=== PATIENT | male | born 1960 | race Two or more races ===

== ENCOUNTER 2017-09-28 19:37 | Emergency (ER) | payer OTHER ==
[~2017-09-28] VITALS: Ht 167.6 cm; Wt 79.4 kg
--- NOTE | 2017-09-28 19:45 | NUR ---
BB RA78 FROM HOME. RT SCAPULA PAIN RADATING TO RT CHEST WHILE USING SCREWDRIVER 1 HR SENIOR FOREMAN, PT STATES TOOK ASA 162mg SENIOR FOREMAN; PAIN WAS RELEIVED BEFORE EMS ARRIVAL. PT ALSO STATES HX STENT PLACED. PT AOX3 RR EVEN AND UNLABORED. NO SOB NOTED. NAD NOT. NO NVD AT THIS TIME. PT NOT DIAPHORETIC. PT GOWNED AND PLACED ON MONITOR. PER RA PLACED IV ON LEFT AC 18G INTACT AND PATENT. NO S/S INFECTION OR INFILTRATION, GOOD BLOOD RETURN.
[2017-09-28] MEDS ORDERED: ASPI-1169 PO (19:49)
--- NOTE | 2017-09-28 19:55 | NUR ---
DR. CABRALES AT BEDSIDE FOR EVAL.
[2017-09-28 20:08] LABS: BASOPHILS # (AUTO) 0.1 /CMM (0.0-0.2); BASOPHILS % (AUTO) 1.8 % (0.0-2.0); EOSINOPHILS % (AUTO) 2.1 % (0.0-6.0); HEMATOCRIT 45 % (39-51); HEMOGLOBIN 15.8 g/dL (13.5-17.5); LYMPHOCYTES # (AUTO) 2.4 /CMM (0.8-4.8); LYMPHOCYTES % (AUTO) 39.3 % (20.0-44.0); MEAN CORPUSCULAR HGB CONC 35 g/dl (31.0-36.0); MEAN CORPUSCULAR VOLUME 89 fL (80-96); MONOCYTES # (AUTO) 0.4 /CMM (0.1-1.30); MONOCYTES % (AUTO) 6.5 % (2.0-12.0); NEUTROPHILS # (AUTO) 3.2 /CMM (1.8-8.9); NEUTROPHILS % (AUTO) 50.3 % (43.0-81.0); PLATELET COUNT (AUTO) 230 /CMM (150-450); RED BLOOD CELL COUNT(AUTO) 5.09 MIL/uL (4.5-6.0); WHITE BLOOD COUNT (AUTO) 6.2 K/uL (4.3-11.0)
--- NOTE | 2017-09-28 20:11 | NUR ---
RADIOLOGY AT BEDSIDE FOR CXR
[2017-09-28 20:13] LABS: CALCIUM, SERUM 8.9 mg/dL (8.5-10.1); CARBON DIOXIDE 27 mmol/L (21-32); CHLORIDE 103 mmol/L (98-107); CREATININE 0.8 mg/dL (0.6-1.3); GLUCOSE 90 mg/dL (74-106); POTASSIUM 3.8 mmol/L (3.5-5.1); SODIUM SERUM 139 mmol/L (136-145); UREA NITROGEN, BLOOD 18 mg/dL (7-18)
[2017-09-28 20:15] LABS: INR 0.93 (0.85-1.15)
[2017-09-28 20:22] LABS: TROPONIN I < 0.017 ng/mL (0.00-0.056)
[2017-09-28] MEDS ORDERED: IV NS 0.9% 250 ML IV ONE (20:22)
[2017-09-28] MEDS ORDERED: IOHEXOL-350 100 ML VIAL IV ONE (20:22)
--- NOTE | 2017-09-28 20:45 | NUR ---
PT RETURNED FROM CT.
--- NOTE | 2017-09-28 21:28 | NUR ---
PAGED EPIC FOR PANEL
--- NOTE | 2017-09-28 21:29 | NUR ---
CALLED NURSE SUP FOR TELE BED
[2017-09-28] MEDS ORDERED: ASPIRIN 325 MG TABLET PO ONE (21:30)
[2017-09-28] MEDS ORDERED: ASPIRIN 81 MG TAB.CHEW PO ONE (21:30)
--- NOTE | 2017-09-28 21:33 | NUR ---
INFORMED PT RECEIVED ASA 162 ON THE FIELD, STILL WANTS MED ORDERS TO BE GIVEN.
--- NOTE | 2017-09-28 21:33 | NUR ---
CALLED RAPHAEL FOR READ ON CTA
[2017-09-28] MEDS ORDERED: ASPIRIN 81 MG TAB.CHEW ONE (21:34)
--- NOTE | 2017-09-28 21:48 | NUR ---
PAGED SRI AGAIN
--- NOTE | 2017-09-28 21:56 | NUR ---
PT ASSIGNED TO TELE 312
--- NOTE | 2017-09-28 21:59 | NUR ---
REPORT GIVEN RASHAAD CALLE FOR TELE BED 312
--- NOTE | 2017-09-28 22:20 | NUR ---
Patient does not wish to proceed with medical care recommended by Dr. Tee . Patient given information related to possible complications, up to and including , which could occur as a result of leaving the hospital at this time. Patient verbalizes understanding of risks involved due to leaving against medical advice. Patient has signed AMA form.
--- NOTE | 2017-09-28 22:22 | NUR ---
IV removed. Catheter intact and site benign. Pressure and 4x4 applied to site. No bleeding noted.
[2017-09-28 22:23] VITALS: BP 148/89
[2017-09-28] MEDS ORDERED: Z GUARD REMEDY 2 OZ OINT TP PRN (23:00)
[2017-09-28] MEDS ORDERED: MORPHINE SULFATE INJ 2 MG/ML DISP.SYRIN IV PRN (23:00)
[2017-09-28] MEDS ORDERED: ACETAMINOPHEN 325 MG TABLET PO PRN (23:00)
[2017-09-28] MEDS ORDERED: ONDANSETRON HCL/PF 4 MG/2 ML VIAL IVP PRN (23:00)
[2017-09-29] MEDS ORDERED: PANTOPRAZOLE 40 MG TABLET.DR PO SCH (07:30)
[2017-09-29] MEDS ORDERED: ENOXAPARIN SODIUM 40 MG/0.4 ML DISP.SYRIN SQ SCH (09:00)
[2017-09-29] MEDS ORDERED: ASPIRIN 81 MG TAB.CHEW PO SCH (09:00)
== END 2017-09-28 22:23 | disposition left against medical advice (07) ==
LOC: ER 19:42 → EDSEX 19:42 → TELE 22:14 → UNDOADMIN 22:14
DX: R07.9 Chest pain, unspecified (principal); K80.20 Calculus of gallbladder without cholecystitis without obstruction
CPT/HCPCS: 36415; 71045-TC; 80048-TC; 84484-TC; 85025-TC; 85730-TC; 87081-TC; A4606; J7050; Q9967; Z7610

== ENCOUNTER 2017-09-30 16:55 | Inpatient (IN) | payer OTHER ==
[~2017-09-30] VITALS: Ht 167.6 cm; Wt 80.3 kg
[~2017-09-30 16:55] MED LIST: ASPI-1169 PO
--- NOTE | 2017-09-30 17:05 | NUR ---
AAOX3, CAME TO ER C/O BACK PAIN RADIATES TO THE FRONT. RESP IS EVEN AND UNLABORED WITH NAD NOTED. SKIN IS WARM AND DRY. PLACED ON THE MONITOR. AWAITING MD FOR EVAL.
[2017-09-30 17:26] LABS: BASOPHILS # (AUTO) 0.1 /CMM (0.0-0.2); BASOPHILS % (AUTO) 1.8 % (0.0-2.0); EOSINOPHILS % (AUTO) 1.2 % (0.0-6.0); HEMATOCRIT 48 % (39-51); HEMOGLOBIN 16.7 g/dL (13.5-17.5); LYMPHOCYTES # (AUTO) 2.2 /CMM (0.8-4.8); LYMPHOCYTES % (AUTO) 34.9 % (20.0-44.0); MEAN CORPUSCULAR HGB CONC 35 g/dl (31.0-36.0); MEAN CORPUSCULAR VOLUME 89 fL (80-96); MONOCYTES # (AUTO) 0.5 /CMM (0.1-1.30); NEUTROPHILS # (AUTO) 3.4 /CMM (1.8-8.9); NEUTROPHILS % (AUTO) 54.1 % (43.0-81.0); PLATELET COUNT (AUTO) 250 /CMM (150-450); RDW COEFFICIENT OF VARIATION 12.3 (11.5-15.0); RED BLOOD CELL COUNT(AUTO) 5.34 MIL/uL (4.5-6.0); WHITE BLOOD COUNT (AUTO) 6.3 K/uL (4.3-11.0)
[2017-09-30] MEDS ORDERED: ASPIRIN 325 MG TABLET PO ONE (17:30)
[2017-09-30] MEDS ORDERED: NITROGLYCERIN PACKET 1 GM PACKET TD ONE (17:30)
[2017-09-30] MEDS ORDERED: NITROGLYCERIN PACKET 1 GM PACKET ONE (17:33)
[2017-09-30] MEDS ORDERED: ASPIRIN 325 MG TABLET ONE (17:33)
[2017-09-30 17:50] LABS: TROPONIN I 0.259 ng/mL (0.00-0.056)
[2017-09-30 17:51] LABS: ALBUMIN 4.1 g/dL (3.4-5.0); BILIRUBIN,DIRECT 0.1 mg/dL (0.0-0.2); BILIRUBIN,TOTAL 0.4 mg/dL (0.2-1.0); CALCIUM, SERUM 9.5 mg/dL (8.5-10.1); CREATININE 0.7 mg/dL (0.6-1.3); POTASSIUM 3.8 mmol/L (3.5-5.1); TOTAL PROTEIN, SERUM 8.3 g/dL (6.4-8.2)
--- NOTE | 2017-09-30 18:14 | NUR ---
CALLED NURSING SUP. FOR TELE BED
--- NOTE | 2017-09-30 18:35 | NUR ---
DR.RUTHERFORD EFRAÍN CLEANER
--- NOTE | 2017-09-30 18:40 | NUR ---
Report given to RASHAAD Oliveira for marvin TELE [id number]
[2017-09-30] MEDS ORDERED: ENOXAPARIN SODIUM 80 MG/0.8 ML DISP.SYRIN SQ ONE (18:43)
[2017-09-30 18:47] LABS: INR 0.95 (0.87-1.13)
[2017-09-30] MEDS ORDERED: ONDANSETRON HCL/PF 4 MG/2 ML VIAL ONE (18:51)
[2017-09-30] MEDS ORDERED: MORPHINE SULFATE INJ 4 MG/ML DISP.SYRIN ONE (18:51)
[2017-09-30] MEDS ORDERED: NITROGLYCERIN PACKET 1 GM PACKET TD PRN (19:00)
[2017-09-30] MEDS ORDERED: ENOXAPARIN SODIUM 60 MG/0.6 ML DISP.SYRIN SQ ONE (19:00)
[2017-09-30] MEDS ORDERED: LORAZEPAM 1 MG TABLET PO PRN (19:00)
[2017-09-30] MEDS ORDERED: NITROGLYCERIN 0.4 MG/TAB BOTTLE SL PRN (19:00)
[2017-09-30] MEDS ORDERED: ONDANSETRON HCL/PF 4 MG/2 ML VIAL IVP PRN ×2 (19:00→22:30)
[2017-09-30] MEDS ORDERED: DOCUSATE SODIUM 100 MG CAPSULE PO PRN (19:00)
[2017-09-30] MEDS ORDERED: ONDANSETRON HCL/PF 4 MG/2 ML VIAL IVP ONE (19:00)
[2017-09-30] MEDS ORDERED: MORPHINE SULFATE INJ 2 MG/ML DISP.SYRIN IV PRN (19:00)
[2017-09-30] MEDS ORDERED: ACETAMINOPHEN 325 MG TABLET PO PRN (19:00)
[2017-09-30] MEDS ORDERED: MORPHINE SULFATE INJ 2 MG/ML DISP.SYRIN IV ONE (19:00)
--- NOTE | 2017-09-30 19:30 | NUR ---
PROP MAKING SUPERVISOR NOTE: RECEIVED PATIENT FROM ER, NO ACUTE DISTRESS NOTED. BREATHING EVEN AND UNLABORED, NO SOB NOTED. IV TO LAC IN PLACE. TELE READING 60. ORIENTED PATIENT TO ROOM AND USE OF CALL LIGHT. BED LOCKED AND IN LOWEST POSITION, CALL LIGHT IN REACH, WILL CONTINUE TO MONITOR.
[2017-09-30 21:00] VITALS: BP 108/60
[2017-09-30] MEDS ORDERED: MAG HYDROX/AL HYDROX/SIMETH 30 ML UDC PO PRN (22:30)
[2017-09-30] MEDS ORDERED: MAGNESIUM HYDROXIDE 30 ML UDC PO PRN (22:30)
[2017-09-30] MEDS ORDERED: HYDROCODONE/APAP 5/325MG 1 EACH TABLET PO PRN (22:30)
[2017-09-30] MEDS ORDERED: ZOLPIDEM TARTRATE 5 MG TABLET PO PRN (22:30)
[2017-09-30] MEDS ORDERED: Z GUARD REMEDY 2 OZ OINT TP PRN (22:30)
[2017-10-01] VITALS (7 sets, daily range): BP systolic 89–118; BP diastolic 44–64
[2017-10-01] MEDS: ACETAMINOPHEN 325 MG TABLET PO PRN ×2 (00:30→06:58)
[2017-10-01] MEDS: NITROGLYCERIN PACKET 1 GM PACKET TD SCH ×4 (00:30→18:30)
[2017-10-01] MEDS: ATORVASTATIN 40 MG TABLET PO SCH ×2 (00:30→21:38)
--- NOTE | 2017-10-01 00:30 | NUR ---
SENIOR INFORMATICA ETL DEVELOPER NOTE: PATIENT TROPONIN LEVEL 9.140, CALLED CONCRETE FINISHING MACHINE OPERATOR MD,SPOKE TO DR. BETSY EDDY, WITH NEW ORDERS FOR LIPITOR 80MG ORAL DAILY, NITRO-BID 2 INCHES EVERY 6 HOURS, AND STAT EKG. EKG TAKEN AND INFORMED DR. BETSY EDDY WITH RESULTS WITH NO FURTHER NEW ORDERS. WILL CONTINUE TO MONITOR.
[2017-10-01 05:51] LABS: BASOPHILS % (AUTO) 0.2 % (0.0-2.0); EOSINOPHILS % (AUTO) 0.5 % (0.0-6.0); HEMATOCRIT 41 % (39-51); LYMPHOCYTES # (AUTO) 2.3 /CMM (0.8-4.8); LYMPHOCYTES % (AUTO) 27.8 % (20.0-44.0); MEAN CORPUSCULAR HGB CONC 35 g/dl (31.0-36.0); MEAN CORPUSCULAR VOLUME 91 fL (80-96); MONOCYTES # (AUTO) 0.6 /CMM (0.1-1.30); MONOCYTES % (AUTO) 7.3 % (2.0-12.0); NEUTROPHILS # (AUTO) 5.3 /CMM (1.8-8.9); NEUTROPHILS % (AUTO) 64.2 % (43.0-81.0); PLATELET COUNT (AUTO) 227 /CMM (150-450); RDW COEFFICIENT OF VARIATION 13.2 (11.5-15.0); RED BLOOD CELL COUNT(AUTO) 4.47 MIL/uL (4.5-6.0); WHITE BLOOD COUNT (AUTO) 8.3 K/uL (4.3-11.0)
[2017-10-01 06:03] LABS: CALCIUM, SERUM 8.5 mg/dL (8.5-10.1); CREATININE 0.7 mg/dL (0.6-1.3); MAGNESIUM 1.9 mg/dL (1.8-2.4); POTASSIUM 3.8 mmol/L (3.5-5.1)
--- NOTE | 2017-10-01 06:50 | NUR ---
UX UI DESIGNER NOTE: PATIENT RESTING IN BED, NO ACUTE DISTRESS NOTED. BREATHING EVEN AND UNLABORED, NO SOB NOTED. IV TO LAC IN PLACE. TELE READING SR 60. TROPONIN LEVEL 52.145, MD ON THE FLOOR AND INFORMED. NEW ORDER FOR STAT EKG, RESULT GIVEN TO MD. BED LOCKED AND IN LOWEST POSITION, CALL LIGHT IN REACH, WILL ENDORSE TO DAY NURSE TO CONTINUE WITH PLAN OF CARE.
--- NOTE | 2017-10-01 07:15 | NUR ---
SHEETER MACHINE OPERATOR OPENING NOTE RECEIVED BEDSIDE SBAR REPORT ON THE PATIENT. PATIENT IS A/O X4, ASLEEP, EASILY AWAKEN IN BED. BED IS LOCKED IN LOWEST POSITION, SIDE RAILS UP X2. PATIENT IS AMBULATORY AND ORIENTED TO OWN ABILITIES. CHEST IS RISING EQUALLY BILATERALLY. DENIES CHEST PAIN/DISCOMFORT AT THIS TIME. EXTERNAL MOTOR VEHICLE FIELD REPRESENTATIVE READING SB 59BPM. DR EDDY IS AWARE OF PATIENT'S MOST RECENT TROPONIN LEVEL OF 52.145. NO NEW ORDERS RECEIVED. EKG COMPLETED AT THE BEDSIDE. PATIENT IS ON ROOM AIR. SPO2 96%. AWAITING CARDIOLOGY CONSULT. ALL NEEDS ARE MET. CALL LIGHT WITHIN REACH. EDUCATED TO USE CALL LIGHT TO CALL FOR ASSISTANCE. PATIENT VERBALIZED UNDERSTANDING. WILL CONTINUE TO ASSESS/MONITOR THROUGHOUT THE SHIFT.
[2017-10-01] MEDS: ASPIRIN 325 MG TABLET PO SCH (08:57)
[2017-10-01] MEDS: ENOXAPARIN SODIUM 80 MG/0.8 ML DISP.SYRIN SQ SCH ×2 (09:00→19:58)
[2017-10-01] MEDS ORDERED: IV NS 0.9% 1,000 ML IV PRN (09:07)
--- NOTE | 2017-10-01 11:50 | NUR ---
PER CASE MANAGEMENT PATIENT TO BE TRANSFERRED TO HIGHER LEVEL OF CARE. AWAITING UPDATES FROM CASE MANAGEMENT. DR. BURNETT INFORMED. DR UREÑA INFORMED.
--- NOTE | 2017-10-01 12:15 | NUR ---
CAME TO ADMINISTER NITRO-BID ORDERED. PATIENT'S BP 82/41 MM HG. PATIENT REFUSED TO COMPLY AND BE PLACED IN MODIFIED [place] POSITION. RISKS AND BENEFITS DISCUSSED. WILL RETURN TO REASSESS.
--- NOTE | 2017-10-01 13:05 | NUR ---
CAME TO ADMINISTER NITRO-BID ORDERED. PATIENT'S BP 88/46 MM HG. IV NS IS RUNNING ORDERED. PATIENT REFUSED TO COMPLY AND BE PLACED IN MODIFIED [place] POSITION. RISKS AND BENEFITS DISCUSSED. WILL RETURN TO REASSESS.
--- NOTE | 2017-10-01 14:16 | NUR ---
CAME TO ADMINISTER NITRO-BID ORDERED. PATIENT'S BP 101/44 MM HG, HR 55. PATIENT REFUSED TO COMPLY AND BE PLACED IN MODIFIED [place] POSITION. RISKS AND BENEFITS DISCUSSED. PATIENT REFUSED NITRO-BID AND STATED HE DOES NOT HAVE A CHEST PAIN AT THIS TIME. PATIENT ASKED TO TAKE A SHOWER. RN EDUCATED THE PATIENT ON RISKS ASSOCIATED WITH ORTHOSTATIC HYPOTENSION. RN EXPLAINED TO THE PATIENT THAT PATIENT MAY NOT SHOWER AT THIS TIME. VERBALIZED UNDERSTANDING.
--- NOTE | 2017-10-01 18:55 | NUR ---
Patient refused nitro. states he has no chest pain. Risks and benefits discussed with the patient. verbalized understanding and refused.
--- NOTE | 2017-10-01 18:57 | NUR ---
TECHNICAL LEAD CLOSING NOTE PATIENT IS A/O X4, AWAKE AND RESPONSIVE IN BED. BED IS LOCKED IN LOWEST POSITION, SIDE RAILS UP X2. PATIENT IS AMBULATORY AND ORIENTED TO OWN ABILITIES. CHEST IS RISING EQUALLY BILATERALLY. DENIES CHEST PAIN/DISCOMFORT AT THIS TIME. EXTERNAL CLEAN ROOM OPERATOR READING SB 57BPM. PATIENT IS ON ROOM AIR. SPO2 95%. ALL NEEDS ARE MET. CALL LIGHT WITHIN REACH. EDUCATED TO USE CALL LIGHT TO CALL FOR ASSISTANCE. PATIENT VERBALIZED UNDERSTANDING. WILL ENDORSE TO THE RN POOL NURSE FOR TROY.
--- NOTE | 2017-10-01 19:10 | NUR ---
RN OPENING NOTES PATIENT IN BED, AWAKE, ALERT AND ORIENTED X 4, NO SOB NOTED, BREATHING EVEN AND UNLABORED, IN NO ACUTE DISTRESS, DENIES CHEST PAIN, NO C/O N/V. ALL PATIENT'S NEEDS ATTENDED TO AT THIS TIME. PATIENT CONTINUES TO RECEIVE IVF ORDERED. WILL CONTINUE TO MONITOR. CALL LIGHT PLACED WITHIN EASY REACH.
--- NOTE | 2017-10-01 23:00 | NUR ---
RN NOTE PATIENT VERBALIZED THAT HE WANTS THE IV HYDRATION TO BE DISCONNECTED. EXPLAINED RISKS AND BENEFITS TO PATIENT X 3. PATIENT VERBALIZED THAT HE HAS BEEN DRINKING A LOT OF WATER AND INSISTS ON DISCONNECTING THE IV. RESPECTED PATIENT'S RIGHTS. WILL CONTINUE TO MONITOR PT.
[2017-10-02] VITALS: BP 109/50
[2017-10-02] MEDS: NITROGLYCERIN PACKET 1 GM PACKET TD SCH ×2 (00:30→06:28)
[2017-10-02 04:00] VITALS: BP 114/70
[2017-10-02] MEDS: ACETAMINOPHEN 325 MG TABLET PO PRN (04:42)
[2017-10-02 06:26] LABS: BASOPHILS % (AUTO) 0.4 % (0.0-2.0); EOSINOPHILS % (AUTO) 0.4 % (0.0-6.0); HEMATOCRIT 41 % (39-51); HEMOGLOBIN 14.1 g/dL (13.5-17.5); LYMPHOCYTES # (AUTO) 2.6 /CMM (0.8-4.8); LYMPHOCYTES % (AUTO) 31.2 % (20.0-44.0); MEAN CORPUSCULAR HGB CONC 34 g/dl (31.0-36.0); MEAN CORPUSCULAR VOLUME 90 fL (80-96); MONOCYTES # (AUTO) 0.8 /CMM (0.1-1.30); MONOCYTES % (AUTO) 9.7 % (2.0-12.0); NEUTROPHILS # (AUTO) 4.8 /CMM (1.8-8.9); NEUTROPHILS % (AUTO) 58.3 % (43.0-81.0); PLATELET COUNT (AUTO) 204 /CMM (150-450); RDW COEFFICIENT OF VARIATION 12.7 (11.5-15.0); RED BLOOD CELL COUNT(AUTO) 4.57 MIL/uL (4.5-6.0); WHITE BLOOD COUNT (AUTO) 8.2 K/uL (4.3-11.0)
--- NOTE | 2017-10-02 06:30 | NUR ---
RN CLOSING NOTES PATIENT IN BED, ALERT AND ORIENTED X 4, NO C/O PAIN, NO SOB, BREATHING EVEN AND UNLABORED, PATIENT VERBALIZED THAT HE DOESN'T WANT THE NITRO BID PATCH TO BE ADMINISTERED AT THIS TIME AND THAT HE DOESN'T HAVE ANY CHEST PAIN. EXPLAINED RISKS AND BENEFITS TO PATIENT X 3 BUT PATIENT STILL INSISTS ON HIS DECISION. RESPECTED PATIENT'S RIGHTS. ALL PATIENT'S NEEDS ATTENDED TO, PLACED CALL LIGHT WITHIN EASY REACH. BED IN LOW POSITION AND LOCKED IN PLACE. STILL ON TELE MONITORING WITH SR @ 74 BPM. WILL ENDORSE TO AM SHIFT NURSE FOR CONTINUITY OF CARE.
[2017-10-02 07:08] LABS: ALBUMIN 3.3 g/dL (3.4-5.0); BILIRUBIN,TOTAL 0.9 mg/dL (0.2-1.0); CALCIUM, SERUM 8.3 mg/dL (8.5-10.1); CREATININE 0.7 mg/dL (0.6-1.3); MAGNESIUM 1.8 mg/dL (1.8-2.4); POTASSIUM 3.6 mmol/L (3.5-5.1); TOTAL PROTEIN, SERUM 6.8 g/dL (6.4-8.2)
--- NOTE | 2017-10-02 07:19 | NUR ---
FRATERNITY ADVISER OPENING NOTE RECEIVED BEDSIDE SBAR REPORT ON THE PATIENT. PATIENT IS A/O X4, ASLEEP, EASILY AWAKEN IN BED. BED IS LOCKED IN LOWEST POSITION, SIDE RAILS UP X2. PATIENT IS AMBULATORY AND ORIENTED TO OWN ABILITIES. CHEST IS RISING EQUALLY BILATERALLY. DENIES CHEST PAIN/DISCOMFORT AT THIS TIME. EXTERNAL RESPIRATORY ASSISTANT READING SR 66BPM. PATIENT IS ON ROOM AIR. SPO2 97%. ALL NEEDS ARE MET. CALL LIGHT WITHIN REACH. EDUCATED TO USE CALL LIGHT TO CALL FOR ASSISTANCE. PATIENT VERBALIZED UNDERSTANDING. WILL CONTINUE TO ASSESS/MONITOR THROUGHOUT THE SHIFT.
--- NOTE | 2017-10-02 07:50 | NUR ---
CAME TO ADMINISTER ENOXAPARIN. PATIENT ASKED TO COME BACK LATER TO ADMINISTER MEDICATION. WILL RETURN TO ADMINISTER.
[2017-10-02 08:00] VITALS: BP 119/62
[2017-10-02 08:36] LABS: TROPONIN I 31.581 ng/mL (0.00-0.056)
[2017-10-02] MEDS: ASPIRIN 325 MG TABLET PO SCH (09:16)
[2017-10-02] MEDS ORDERED: CARVEDILOL 6.25 MG TABLET PO SCH (09:30)
[2017-10-02] MEDS ORDERED: ENOXAPARIN SODIUM 40 MG/0.4 ML DISP.SYRIN SQ SCH (09:30)
[2017-10-02 10:15] VITALS: BP 124/62
--- NOTE | 2017-10-02 10:40 | NUR ---
PATIENT STATED HE WANTS TO LEAVE THE HOSPITAL AGAINST MEDICAL ADVICE AND WANTS TO GO TO [facility]. HEALTH UNDERWRITER DR BURNETT DISCUSSED RISKS AND BENEFITS ASSOCIATED WITH AMA WITH THE PATIENT AT THE BEDSIDE EARLIER. RN DISCUSSED RISKS AND BENEFITS ASSOCIATED WITH LEAVING AGAINST MEDICAL ADVICE. PATIENT VERBALIZED UNDERSTANDING OF THE RISKS, BUT STATED HE WANTS TO LEAVE AND GO TO [facility]. RN DISCUSSED WITH THE PATIENT THAT CASE MANAGEMENT IS CURRENTLY WORKING ON LATERAL TRANSFER OF THE PATIENT TO ANOTHER [facility]UTE [facility] H[facility] WITH A PATIENT FINANCIAL SPECIALIST AVAILABLE. PATIENT STATED HE DOES NOT WANT TO WAIT. RN ENCOURAGED THE PATIENT TO NOT LEAVE THE HOSPITAL AGAINST MEDICAL ADVICE. PATIENT VERBALIZED FULL UNDERSTANDING OF THE RISKS, BUT INSISTED ON LEAVING AMA. CHARGE NURSE INFORMED. DR. UREÑA NOTIFIED.
--- NOTE | 2017-10-02 11:03 | NUR ---
RN ATTEMPTED TO SPEAK WITH THE PATIENT AGAIN AND ENCOURAGE NOT TO LEAVE [facility]MA. PATIENT IS LEAVING AGAINST MEDICAL ADVICE. RISKS AND BENEFITS ARE DISCUSSED AT THE BEDSIDE BY HOME HEALTH CARE WORKER AND THE RN. PATIENT ENCOURAGED TO STAY AT [facility] WHILE AWAITING FOR LATERAL MOVE APPROVAL FROM ANOTHER ACUTE [facility]ARE HOSP[facility]. PATIENT VERBALIZED UNDERSTANDING OF THE TEACHINGS AND INSISTED ON LEAVING THE HOSPITAL. PREDATING THE DISCHARGE/AMA PACKET. PATIENT AGREED TO SIGN ALL THE DOCUMENTS.
--- NOTE | 2017-10-02 11:45 | NUR ---
IV CATHETER REMOVED WITH THE TIP INTACT. OCCLUSIVE DRESSING APPLIED. PATIENT TOLERATED PROCEDURE WELL. ALL DOCUMENTS/LABS/PROCEDURE/TEST RESULTS GIVEN TO THE PATIENT. AMA FORM SIGNED. ALL BELONGINGS ARE ACCOUNTED FOR. PATIENT DENIES PAIN/DISCOMFORT. VS WNL. NO SOB. SPO2 96% ON RA. PATIENT WAS WHEELED DOWN TO THE LOBBY TO BE PICKED UP BY THE FRIEND. PATIENT LEFT THE UNIT INSTABLE CONDITION.
== END 2017-10-02 11:45 | disposition left against medical advice (07) | DRG 190 ==
LOC: ER 16:59 → TELE 18:44
PROVIDERS: ADMIT Internal Medicine; ATTEND Internal Medicine
DX: I21.4 Non-ST elevation (NSTEMI) myocardial infarction (principal); J44.9 Chronic obstructive pulmonary disease, unspecified; I25.2 Old myocardial infarction; I25.10 Atherosclerotic heart disease of native coronary artery without angina pectoris; Z95.5 Presence of coronary angioplasty implant and graft; Z87.891 Personal history of nicotine dependence; Z79.82 Long term (current) use of aspirin
CPT/HCPCS: 36415; 71045-TC; 80048-TC; 80053-TC; 80076-TC; 83735-TC; 84100-TC; 84484-TC; 85025-TC; 85730-TC; 87081-TC; 93307-TC; A4606; J1650; J2270; J2405; J7030; Z7610